=== PATIENT | female | born 1995 | race Caucasian/White ===

== ENCOUNTER 2023-08-19 15:01 | Inpatient (IN) | payer MEDICAID ==
[~2023-08-19] VITALS: Ht 162.6 cm; Wt 107.9 kg
[2023-08-19 15:31] VITALS: BP 143/78
[2023-08-19] MEDS ORDERED: DIBUCAINE 1% OINTMENT 30GM TOP PRN (16:20)
[2023-08-19] MEDS ORDERED: MOM 30ML SUSPENSION UDC PO PRN (16:20)
[2023-08-19] MEDS ORDERED: DOCUSATE SODIUM 100MG CAPSULE PO PRN (16:20)
[2023-08-19] MEDS ORDERED: ANUSOL HC CREAM 30GM TOP PRN (16:20)
[2023-08-19] MEDS ORDERED: ACETAMINOPHEN TAB 650MG DOSE (2X325MG) PO PRN (16:20)
[2023-08-19] MEDS ORDERED: METHYLERGONOVINE MALEATE 0.2 MG TAB PO PRN (16:20)
[2023-08-19] MEDS ORDERED: RHOGAM 300MCG (1500IU) INJ IM SCH (16:20)
[2023-08-19] MEDS ORDERED: IBUPROFEN 600MG TAB PO PRN (16:20)
[2023-08-19] MEDS: IBUPROFEN 800 MG TAB PO PRN (16:34)
[2023-08-19] MEDS ORDERED: DULO1CAP6 PO (16:38)
[2023-08-19] MEDS ORDERED: FERR325T3 PO (16:38)
[2023-08-19] MEDS ORDERED: DICL100G10 TOP (16:38)
[2023-08-19] MEDS ORDERED: CETI-24 PO (16:38)
[2023-08-19] MEDS ORDERED: REGL5TAB2 PO (16:38)
[2023-08-19] MEDS ORDERED: PRENTAB9 PO (16:38)
[2023-08-19] MEDS ORDERED: HOME MED LIST COMPLETE! XX SCH (16:40)
[2023-08-19 18:31] VITALS: BP 133/80; O2SAT 97
[2023-08-20 06:00] VITALS: BP 122/83; O2SAT 98
[2023-08-20] MEDS: PRENATAL VITAMINS CHEWABLE TABLET PO SCH (08:31)
[2023-08-20 18:00] VITALS: BP 141/78; O2SAT 96
[2023-08-20] MEDS: ACETAMINOPHEN 500 MG TAB PO PRN (19:44)
[2023-08-21 05:43] VITALS: BP 135/68; O2SAT 98
[2023-08-21] MEDS: MEASLES,MUMPS,RUBELLA VACCINE INJ (MMR-II) SC.IMMUN ONE (09:00)
[2023-08-21] MEDS ORDERED: IBUP80TA PO (12:17)
[2023-08-21] MEDS ORDERED: ACET-683 PO (12:17)
== END 2023-08-21 17:50 | disposition home or self-care (01) | DRG 561 ==
LOC: M LDI 15:01 → M OBS 18:31
PROVIDERS: ADMIT Advanced Practice Midwife; ATTEND Advanced Practice Midwife
DX: Z39.0 Encounter for care and examination of mother immediately after delivery (principal)

== ENCOUNTER → 2023-12-15 | Outpatient (CLI) | payer OTHER ==
[~2023-12-15] MED LIST: ACET-683 PO; CETI-24 PO; DICL100G10 TOP; DULO1CAP6 PO; FERR325T3 PO; IBUP80TA PO; PRENTAB9 PO; REGL5TAB2 PO
== END ==
LOC: M PLALAB 16:05
PROVIDERS: ATTEND Specialist
DX: Z34.90 Encounter for supervision of normal pregnancy, unspecified, unspecified trimester (principal)

== ENCOUNTER → 2023-12-22 | Outpatient (CLI) | payer OTHER | LOC: M PLALAB 15:53 | PROVIDERS: ATTEND Specialist | DX: N92.6 Irregular menstruation, unspecified (principal) ==

== ENCOUNTER → 2024-01-18 | Outpatient (CLI) | payer OTHER ==
[2024-01-18 17:23] LABS: HEMATOCRIT 35.4 % (36.0-47.0); HEMOGLOBIN 10.9 g/dl (12.0-15.5); MEAN CORPUSCULAR HEMOGLOBIN 22.6 pg (27.0-33.0); MEAN CORPUSCULAR HGB CONC 30.8 g/dl (32.0-36.5); MEAN CORPUSCULAR VOLUME 73.4 fl (80.0-96.0); PLATELET COUNT, AUTOMATED 268 10^3/uL (150-450); RED BLOOD COUNT 4.82 10^6/uL (4.00-5.40); WHITE BLOOD COUNT 6.4 10^3/uL (4.0-10.0)
[2024-01-18 18:18] LABS: HIV 1&2 SCREEN NEGATIVE (NEGATIVE)
[2024-01-18 18:21] LABS: HEPATITIS C VIRUS ABY INDEX < 0.02 INDEX (<0.8)
[2024-01-18 19:04] LABS: GC DNA AMPLIFICATION NEGATIVE (NEGATIVE)
== END ==
LOC: M PLALAB 15:49
PROVIDERS: ATTEND Specialist
DX: Z34.81 Encounter for supervision of other normal pregnancy, first trimester (principal)

== ENCOUNTER → 2024-02-08 | Outpatient (REF) | payer MEDICAID, OTHER | LOC: M SFHCWAGY 17:29 | PROVIDERS: ATTEND Specialist | DX: R82.90 Unspecified abnormal findings in urine (principal) ==

== ENCOUNTER → 2024-05-11 | Outpatient (CLI) | payer OTHER | LOC: M RAD 08:31 | PROVIDERS: ATTEND Specialist | DX: O32.1XX0 Maternal care for breech presentation, not applicable or unspecified (principal); Z3A.25 25 weeks gestation of pregnancy ==

== ENCOUNTER → 2024-05-14 | Outpatient (CLI) | payer OTHER ==
[2024-05-14 13:05] LABS: HEMATOCRIT 37.6 % (36.0-47.0); MEAN CORPUSCULAR HEMOGLOBIN 25.8 pg (27.0-33.0); MEAN CORPUSCULAR HGB CONC 31.9 g/dl (32.0-36.5); MEAN CORPUSCULAR VOLUME 80.7 fl (80.0-96.0); PLATELET COUNT, AUTOMATED 228 10^3/uL (150-450); RED BLOOD COUNT 4.66 10^6/uL (4.00-5.40); WHITE BLOOD COUNT 8.2 10^3/uL (4.0-10.0)
[2024-05-14 13:09] LABS: GLUCOSE CHALLENGE TEST 1 HOUR 175 MG/DL (LESS THAN 140)
[2024-05-14 13:41] LABS: HIV 1&2 SCREEN NEGATIVE (NEGATIVE)
[2024-05-14 13:49] LABS: HEPATITIS C VIRUS ABY INDEX < 0.02 INDEX (<0.8)
[2024-05-14 14:21] LABS: GC DNA AMPLIFICATION NEGATIVE (NEGATIVE)
== END ==
LOC: M PLALAB 08:52
PROVIDERS: ATTEND Specialist
DX: Z34.82 Encounter for supervision of other normal pregnancy, second trimester (principal)

== ENCOUNTER → 2024-05-23 | Outpatient (CLI) | payer OTHER | LOC: M LAB 06:08 | PROVIDERS: ATTEND Specialist | DX: Z34.82 Encounter for supervision of other normal pregnancy, second trimester (principal) ==

== ENCOUNTER → 2024-07-25 | Outpatient (REF) | payer MEDICAID, OTHER | LOC: M SFHCWAGY 14:45 | PROVIDERS: ATTEND Specialist | DX: O24.410 Gestational diabetes mellitus in pregnancy, diet controlled (principal); O99.333 Smoking (tobacco) complicating pregnancy, third trimester; F17.210 Nicotine dependence, cigarettes, uncomplicated; Z3A.35 35 weeks gestation of pregnancy; Z88.1 Allergy status to other antibiotic agents ==

== ENCOUNTER → 2024-08-01 | Outpatient (CLI) | payer OTHER | LOC: M RAD 11:22 | PROVIDERS: ATTEND Obstetrics & Gynecology | DX: O24.419 Gestational diabetes mellitus in pregnancy, unspecified control (principal); Z3A.37 37 weeks gestation of pregnancy ==

== ENCOUNTER → 2024-09-25 | Outpatient (REF) | payer MEDICAID, OTHER ==
[~2024-09-25] MED LIST changes: +IBUP-1022 PO; +SERT-141 PO; +WELLTAB40 PO
== END ==
LOC: M PLALAB 12:07
PROVIDERS: ATTEND Advanced Practice Midwife
DX: Z39.2 Encounter for routine postpartum follow-up (principal); R30.0 Dysuria

== ENCOUNTER → 2025-03-15 | Outpatient (CLI) | payer MEDICAID ==
[~2025-03-15] MED LIST changes: +BUPR-69 PO; +ERGO500029 PO; -IBUP-1022 PO; +IBUP600T42 PO; +NORE-30 PO
== END ==
LOC: M WHC 10:54
PROVIDERS: ATTEND Obstetrics & Gynecology
DX: N93.9 Abnormal uterine and vaginal bleeding, unspecified (principal); Z53.9 Procedure and treatment not carried out, unspecified reason